=== PATIENT | male | born 1995 ===

== ENCOUNTER → 2024-11-12 13:30 | Outpatient (BNV) | payer OTHER, SELFPAY | PROVIDERS: Visit Provider Internal Medicine Cardiovascular Disease | DX: R00.0 Tachycardia, unspecified (principal) | CPT/HCPCS: 93244 ==

== ENCOUNTER → 2024-11-12 14:00 | Outpatient (REF) | payer OTHER, SELFPAY ==
--- NOTE | 2024-11-12 | HM_ITS ---
Conclusion: 1. Patient was monitored for total period of 3 days 2. Baseline was normal sinus rhythm with average heart of 67 beats per minute 3. Periods of artifactual data noted 4. Rare ectopy noted with no significant pauses 5. Patient marked the counter 9 times with symptoms of dizziness lightheadedness, correlating with sinus rhythm or sinus tachycardia MTDD
--- OUTSIDE RECORDS SUMMARY | 2024-11-14 20:00 | XMS_ITS | Continuity of Care Document ---
Author Organization [facility] Address [address] [place] [address] Phone Care Team Providers Care Canceling Machine Operator Name Role Phone Unavailable Unavailable Unavailable Advance Directives Directive Yes / No Effective Date File Name No Information Encounters Encounter Description Practice Location Reason(s) For Visit Diagnoses Date Provider Providers Copied on Encounter [facility], [address], [place], [place], [id number], tel:[phone] [facility] No Information 2200 4 No Information Family History Family Member Type Diagnosis Age At Onset No Information Payers Payer name Insurance type Covered green party ID Authoriza tion(s) No Information Social History Type Description Quantity Date Captured Comments Sex Male Smoking Status No Information Chief Complaint And Reason For Visit No Information Reason For Referral Reason For Referral No Information History Of Present Illness Encounter Date Complaint History Of Prese nt Illness No Information Functional Status Date Functional Assessmen t No Information Instructions Date Instruction Additional Infor mation No Information Assessments Type Assessment Date No Information Patient Care Teams Name Effective Dates (start - stop) Status Members No Information
--- OUTSIDE RECORDS SUMMARY | 2024-11-14 20:00 | XMS_ITS | Data Portability ---
Author Organization BREANNE Gutierrez [facility], [address] Address [address] [place] [address] Assessment No assessment recorded. Plan of Treatment Reminders Order Date Submit Date Provider Last Modified By Organization Details Last Modified Time Details Appointments None recorded. Lab None recorded. Referral ophthalmolo gist referral 2023 024 daisha Jamison MD, [address] [place] [address], [id number], 4 19:13:19 ophthalmolo gist referral 2023 024 daisha [facility], [address] [place], [address], 4 19:13:20 Procedures None recorded. Surgeries None recorded. Imaging XR, orbit, 4 or more view 2023 024 [email or web address] [facility], [address] [place], [address], 4 07:59:51 Medication Orders amoxicillin 500 mg capsule 2023 024 [email or web address] [id number], [address] [facility], [place], [address], 4 19:10:45 Patient TargetsNo targets recorded. Patient Instructions Encounter Date Encounter Id Patient Instructions Last Modified By Organization Details Last Modified Time 06/06/2024 [id number] Blows to the eye Direct blows to the eye can damage the skin and other tissues around the eye, the eyeball, or the bones of the eye socket. Blows to the eye often cause bruising around the eye (black eye) or cuts to the eyelid. If a blow to the eye or a cut to the eyelid occurred during an accident, be sure to check for injuries to the eyeball itself. And check for other injuries, especially to the head or face. Concern about an eye injury may cause you to miss other injuries that need care. The structure of your face helps protect your eyes from injury. Still, injuries can damage your eye, sometimes severely enough that you could lose your vision. Most eye injuries are preventable. If you play sports or work in certain jobs, you may need protection. The most common type of injury happens when something irritates the outer surface of your eye. Certain jobs such as industrial jobs or hobbies such as carpentry make this type of injury more likely. It's also more likely if you wear contact lenses. Chemicals or heat can burn your eyes. With chemicals, the pain may cause you to close your eyes. This traps the irritant next to the eye and may cause more damage. You should wash out your eye right away while you wait for medical help. Blunt trauma (from a ball or fist or elbow) can cause bleeding inside the eye, which is called a hyphema. Blood in the eye can cause high eye pressure and inflammation, which can lead to permanent vision loss. A hyphema needs to be evaluated urgently and often needs treatment with eye drops, frequent follow-up, limitations on activity, and in rare cases, surgery. Blunt trauma that causes other problems like swelling of the eyelid, red eye, pain, vision loss, or discharge, should also be evaluated by an plater supervisor soon after the injury. Sports with high-speed ball action are the most likely to cause damage to the eye -- racquetball, squash, tennis, soccer, golf, baseball and softball, basketball, field hockey, lacrosse, water polo, and hockey. Protective eyeglasses or face goff are available for most activities to help prevent eye injuries. The best protective eyewear for sports activities is a sports frame (not daily wear glasses) with polycarbonate (or shatter-resistant) lenses. Sports such as hockey, baseball, lacrosse, field hockey, racquetball, squash, and shooting may require goggles or a full face mask. If a child needs better vision with glasses, the glasses prescription can be placed in the sports frame. Although many athletes wear contact lenses, contact lenses do not provide any protection from eye injury. Safety glasses should also be worn while working with potentially eye-damaging materials around the home. Children should be kept away from possible exposure to vision-threatening situations. In addition, all dangerous chemicals should be stored safely away from children. FOLLOW UP WITH YOUR EYE DOCTOR OR PCP IN 3-5 DAYS IF THERE IS ANY WORSENING OR NO IMPROVEMENT WITH YOUR INJURY. Not available 06/06/2024 19:10:11 Reason for Referral Hay Rake Operator Referral for Contusion of orbital tissues Referring Physician: Tony Sneed, Urgent Care, Encounter Date: 06/06/2024 Hay Rake Operator Referral for Contusion of orbital tissues Referring Physician: Tony Sneed, Urgent Care, Encounter Date: 06/06/2024 Problems No Known Problems Medical Equipment None Reported. Allergies No known drug allergies Medications Name Sig Start Date Stop Date Status Note LastModified by Organization Details LastModified Time amoxicillin 500 mg capsule Take 1 capsule 3 times a day by oral route for 7 days. active Not Available Not Available No t Available acetazolamid e 125 mg tablet PLEASE SEE ATTACHED FOR DETAILED DIRECTIONS active Not Available Not Available N ot Available Vitals Date Recorded Body height Body mass index (BMI) Body weight Body temperature Respiratory rate Oxygen saturation Oxygen saturation in Arterial blood by Pulse oximetry Heart rate Pain severity - 0-10 verbal numeric rating [Score] - Reported Systolic blood pressure Diastolic blood pressure Provider Name and Address Organization Details Last Updated DateTime 4 177.8 cm 28 kg/m2 36930.5 1 g 97.8 [degF] 18 /min 96 % 96 % 101 /min 3 111 mm[Hg] 74 mm[Hg] Vilma Gutierrez [facility] 18:49:09 Social History Question Answer Notes LastModified by [email or web address] ion Details LastModified Time Tobacco Smoking Status Former Smoker BREANNE Manuel [facility] 06/06/2024 18:51:18 What Is Your Level Of Alcohol Consumption? Occasional Information not available 06/06/2024 How Many Times Per Week Do You Consume Alcohol? Less Than 1 Time Per Week Information not available 06/06/2024 Are You Currently Employed? Yes Information not available 06/06/2024 Which Illicit Or Recreational Drugs Have You Used? Almond Information not available 06/06/2024 When Did You Quit Smoking? 1-5yearssincel tony Information not available 06/06/2024 Have You Had A Flu Shot This Season? No Information not available 06/06/2024 If No, Would You Like A Flu Shot Today? No Information not available 06/06/2024 What Is Your Relationship Status? Other Information not available 06/06/2024 Do You Use Any Illicit Or Recreational Drugs? Yes Information not available 06/06/2024 Have You Recently Traveled Abroad? No Information not available 06/06/2024 Do You Or Have You Ever Used Any Other Forms Of Tobacco Or Nicotine? No Information not available 06/06/2024 Sex: Unknown Functional Status None recorded. Mental Status None recorded. Family History Relationship Description Onset Age of this Age Resolved Age Notes LastModified by Organization Details LastModified Time Father No current problems or disability Not available 06/06 18:50:51 Mother No current problems or disability Not available 06/06 18:50:51 Medical History No medical history recorded. Immunizations Vaccine Type Date Status Note Provider Nam e and Address Organization Details Recorded Time Influenza, split virus, quadrivalent, preservative 8 completed Vilma Margy null, [place] - [facility] 06/06/2024 18:49:50 Influenza, recombinant, quadrivalent, PF 2 completed Vilma Margy null, [place] - [facility] 06/06/2024 18:49:50 COVID-19, mRNA, LNP-S, PF, 100 mcg/0.5mL dose or 50 mcg/0.25mL dose 1 completed Vilma Margy null, [place] - [facility] 06/06/2024 18:49:50 COVID-19, mRNA, LNP-S, PF, 30 mcg/0.3 mL dose 1 completed Vilma Margy null, [place] - [facility] 06/06/2024 18:49:50 COVID-19, mRNA, LNP-S, PF, 30 mcg/0.3 mL dose 1 completed Vilma Margy null, [place] - [facility] 06/06/2024 18:49:50 Tdap 8 completed Vilma Margy null, [place] - [facility] 06/06/2024 18:49:50 rabies, intramuscular injection 8 completed Vilma Mragy null, PA - [facility] 06/06/2024 18:49:50 rabies, intramuscular injection 8 completed Vilma Margy null, [place] - [facility] 06/06/2024 18:49:50 rabies, intramuscular injection 8 completed Vilma Margy null, [place] - [facility] 06/06/2024 18:49:50 Macanese Encephalitis IM 8 completed Vilma Margy null, PA - [facility] 06/06/2024 18:49:50 Macanese Encephalitis IM 8 completed Vilma Margy null, [place] - [facility] 06/06/2024 18:49:50 typhoid, ViCPs 8 completed Vilma Margy null, [place] - [facility] 06/06/2024 18:49:50 typhoid, ViCPs 0 completed Vilma Margy null, [place] - [facility] 06/06/2024 18:49:50 Influenza, split virus, quadrivalent, PF 0 completed Vilma Margy null, [place] - [facility] 06/06/2024 18:49:50 Past Encounters Encounter ID Performer Location Encounter Start Date Encounter Closed Date Diagnosis/Indication Diagnosis SNOMED-CT Code Diagnosis ICD10 Code Diagnosis Note [id number] BREANNE MENDEZ [address] [place] [address] 06/06/2024 18:44:42 06/06/2024 19:13:19 Contusion of orbital tissues [id number] S05.11XA Health Concerns Section Related Observation LastModified by Organization Detai ls LastModified Time None Recorded Concern Status LastModified by Organization Details LastModified Time None Recorded Advance Directives Directive None Recorded Payers Encounter Date Sequence Insurance Name Policy Number Policy Horan Covered Member ID Horan Member ID Guarantor Name 06/06/2024 1 [facility] [id number] Danilo Hooker [id number] Danilo Hooker Notes Date Note Type Note Provider Name and Address Organization Details Recorded Time 06/06/2024 text/html Eye problemsRepo rted bypatient.Notes:28 y.o male pt presents with swelling and ecchymosis to right lower periorbital area 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 Pt denies LOC, visual disturbance, open wounds, bleeding, N/V, headache or other sx's. Patient is able to look around without complications. He is not taking blood thinners. BREANNE MENDEZ [address] [place], [address], [place] - [facility] 06/08/2024 10:32:09
== END ==
LOC: HO.CARD 14:00
PROVIDERS: Visit Provider Emergency Medicine
DX: R00.1 Bradycardia, unspecified (principal)
CPT/HCPCS: 93242

== ENCOUNTER 2024-11-22 07:13 | Outpatient (REF) | payer OTHER, SELFPAY ==
--- NOTE | ~2024-11-22 | US_ITS ---
EXAMINATION: US SCROTUM CLINICAL INFORMATION: Testicular pain. Severe torsion age of 11.. COMPARISON: None available. TECHNIQUE: A sonogram of the scrotum was performed assessing stallworth-scale appearance and color Doppler flow. Spectral Doppler analysis of the arterial and venous flow were performed in the testes bilaterally. FINDINGS: RIGHT: Right testicle measures 5.4 x 2.3 x 2.9 cm, volume 18.8 mL. No focal testicular parenchymal lesions are visualized. Spectral Doppler analysis of the arterial and venous flow is normal in the right testis. Right epididymal head is normal in size.. There is a small right epididymal head cyst measuring 0.6 x 0.5 x 0.7 cm. No right hydrocele or varicocele is seen. Right epididymal Doppler flow is normal. LEFT: Left testicle measures 5.3 x 2.6 x 3.2 cm, volume 23.0 ml. No focal testicular parenchymal lesions are visualized. Spectral Doppler analysis of the arterial and venous flow is normal in the left testis. Left epididymal head is normal in size. No left hydrocele or varicocele is seen. Left epididymal Doppler flow is normal. US/US scrotum IMPRESSION: Small right epididymal head cyst. Otherwise unremarkable complete scrotal ultrasound. There is normal vascular flow to both testes and the epididymides. Electronically signed by: Quincy Ibanez MD 11/22/2024 10:04 AM MARK
--- OUTSIDE RECORDS SUMMARY | 2024-11-22 07:16 | XMS_ITS | Continuity of Care Document ---
Author Organization [facility] Address [address] [place] [address] Phone Care Team Providers Care Wildlife Science Professor Name Role Phone Unavailable Unavailable Unavailable Advance Directives Directive Yes / No Effective Date File Name No Information Encounters Encounter Description Practice Location Reason(s) For Visit Diagnoses Date Provider Providers Copied on Encounter [facility], [address], [place], [place], [id number], tel:[phone] [facility] No Information 2200 4 No Information Family History Family Member Type Diagnosis Age At Onset No Information Payers Payer name Insurance type Covered democrat ID Authoriza tion(s) No Information Social History [...]
== END 2024-11-22 07:14 | disposition home or self-care (01) ==
LOC: HO.UMASIMG 07:13
PROVIDERS: Visit Provider Emergency Medicine
DX: N50.819 Testicular pain, unspecified (principal)
CPT/HCPCS: 76870

== ENCOUNTER → 2024-11-22 09:00 | Outpatient (BNV) | payer OTHER, SELFPAY | PROVIDERS: Visit Provider Radiology Diagnostic Radiology | DX: N50.3 Cyst of epididymis (principal) | CPT/HCPCS: 76870 ==